=== PATIENT | male | born 1980 | race Caucasian/White ===

== ENCOUNTER 2020-03-28 14:51 | Emergency (ER) | payer SELFPAY ==
[2020-03-28] MEDS ORDERED: Diphtheria,Pertussis(Acell),Tetanus Vaccine 0.5 ML Syringe IM ONE (15:48)
--- NOTE | 2020-03-28 15:51 | EDM.PDOC ---
ED HPI GENERAL MEDICAL PROBLEM - General Chief Complaint: Laceration Stated Complaint: RIGHT FINGER INJURY Time Seen by Provider: 03/28/20 14:54 Source of Information: Reports: Patient History Limitations: Reports: No Limitations - History of Present Illness INITIAL COMMENTS - FREE TEXT/NARRATIVE: HISTORY AND PHYSICAL: History of present illness: Patient is a 39-year-old male who presents to the ED today with concern of right hand fourth digit injury that occurred just prior to travel to the ED. Patient states he threw a pipe down at work and his finger got smashed between 2 pipes. Patient states he came immediately to the emergency room. Patient states that he is not up-to-date on his tetanus and would like to update this today. States his been fully able to move the digits without any deficit. Patient denies fever, chills, chest pain, shortness of breath, or cough. Denies headache, neck stiff ness, change in vision, syncope, or near syncope. Denies nausea, vomiting, abdominal pain, diarrhea, constipation, or dysuria. Has not noted any blood in urine or stool. Patient has been eating and drinking appropriately. Review of systems: As per history of present illness and below otherwise all systems reviewed and negative. Past medical history: As per history of present illness and as reviewed below otherwise noncontributory. Surgical history: As per history of present illness and as reviewed below otherwise noncontributory. Social history: See social history for further information Family history: As per history of present illness and as reviewed below otherwise noncontributory. Physical exam: General: Patient is alert, oriented, and in no acute distress. Patient sitting comfortably on exam table. Vitals stable and reviewed by me. HEENT: Atraumatic, normocephalic, pupils equal and reactive bilaterally, negative for conjunctival pallor or scleral icterus, mucous membranes moist, TMs normal bilaterally, throat clear, neck supple, nontender, trachea midline. No drooling or trismus noted. No meningeal signs. No hot potato voice noted. Lungs: Clear to auscultation, breath sounds equal bilaterally, chest nontender. Heart: S1S2, regular rate and rhythm without overt murmur Abdomen: Soft, nondistended, nontender. Negative for masses or hepatosplenomegaly. Negative for costovertebral tenderness. Pelvis: Stable nontender. Genitourinary: Deferred. Rectal: Deferred. Skin: Intact, warm, dry. No lesions or rashes noted. Extremities: The distal 4th digit has a 4cm irregular laceration that starts on the pad of the palmar aspect and extends along the most distal fingertip and into the lateral nail slightly disturbing the small portion of the distal nail bed. Proper hemostasis of the finger. Patient has full ROM of all digits of the RUE without difficulty. Patient has full range of motion of the right wrist without pain or difficulty. Radial pulses grossly intact of the right upper extremity with capillary refill less than 2 seconds. Atraumatic, negative for cords or calf pain. Neurovascular unremarkable. Neuro: Awake, alert, oriented. Cranial nerves II through XII unremarkable. Cerebellum unremarkable. Motor and sensory unremarkable throughout. Exam nonfocal. Notes: Dr. Lincoln directly involved in patient care. Although strays shows fractures of the distal fourth and fifth digit phalanges, patient is not having any pain at the area of possible fracture on the fifth digit. There is no laceration or open area of the fifth digit of the right upper extremity. Patient is placed in a splint which is sirena taped with the fifth digit by nursing staff. I did call and speak to the hand specialist on-call at [facility], Dr. Aggarwal, who states that he is currently on-call for Dr. Tripathi. He instructs that placement be sent home on antibiotic and to have patient follow-up with Dr. Tripathi in the clinic. Signs and symptoms that were prompt return to the ED thoroughly discussed with patient. Discussed importance for follow-up with a hand specialist, Dr. Tripathi. Voices understanding and is agreeable to plan of care. Denies any further questions or concerns at this time. Diagnostics: hand XR Therapeutics: Tdap, Digital block, Sutures, splint placed by nursing staff Prescription: Keflex Impression: Open tuft fracture, right, open, 4th digit Tuft fracture, right, closed, 5th digit Plan: 1. Keep the splint on until follow-up with a hand specialist. Call tomorrow morning to establish an appointment time with the hand specialist. The number has been provided above for you to call and establish an appointment time. 2. Follow-up with the hand specialist as discussed. Return to the ED as needed and as discussed. 3. You can alternate ibuprofen and Tylenol as directed for pain and discomfort. Definitive disposition and diagnosis as appropriate pending reevaluation and review of above. right ring finger Pain Score (Numeric/FACES): 10 - Related Data Allergies Allergy/AdvReac Type Severity Reaction Status Date / Time No Known Allergies Allergy Verified 03/28/20 15:11 Home Meds: Home Meds cephALEXin [Keflex] 500 mg PO BID 10 Days #20 cap 03/28/20 [Rx] Past Medical History - Past Health History Medical/Surgical History: Denies Medical/Surgical History Social & Family History - Tobacco Use Tobacco Use Status *Q: Never Tobacco User - Recreational Drug Use Recreational Drug Use: No ED ROS GENERAL - Review of Systems Review Of Systems: Comprehensive ROS is negative, except as noted in HPI. ED EXAM, SKIN/RASH Exam: See Below (see dictation) ED SKIN PROCEDURES - Laceration/Wound Repair Right Distal Digit - 4th (Ring) Appearance: Muscle, Irregular, Mildly Contaminated Distal NVT: Neuro & Vascular Intact, No Tendon Injury Anesthetic Type: Digital Local Anesthesia - Lidocaine (Xylocaine): 1% Plain Local Anesthesia - Bupivicaine (Marcaine): 0.5% Plain Local Anesthetic Volume: Other (7) Skin Prep: Chlorhexidine (Hibiciens), Providone-Iodine (Betadine), Saline Saline Irrigation (cc's): 500 Exploration/Debridement/Repair: Wound Explored, In a Bloodless Field, Explored to Base, No Foreign Material Found Closed with: Sutures Lac/Wound length In cm: 4 Suture Size: 4-0 # of Sutures: 6 Suture Type: Silk, Interrupted Drain Placement: No Sterile Dressing Applied: Nurse Tetanus Status Addressed: Yes Complications: No Course - Vital Signs Last Recorded V/S: Last Vital Signs Temp 97.4 F 03/28/20 17:27 Pulse 60 03/28/20 17:27 Resp 18 03/28/20 17:27 BP 126/76 03/28/20 17:27 Pulse Ox 97 03/28/20 17:27 - Orders/Labs/Meds Orders: Active Orders 24 hr Category Date Time Status DME for Discharge [COMM] Stat Oth 03/28/20 17:15 Ordered Meds: Medications Discontinued Medications Generic Name Dose Route Start Last Admin Trade Name Freq PRN Reason Stop Dose Admin Bupivacaine HCl 10 ml 03/28/20 15:54 03/28/20 15:59 Sensorcaine-Mpf 0.5% INJECT 03/28/20 15:55 10 ml ONETIME ONE Administration Diphtheria/Tetanus/Acell Pertussis 0.5 ml 03/28/20 15:48 03/28/20 15:59 Boostrix IM 03/28/20 15:49 0.5 ml .ONCE ONE Administration Lidocaine HCl 5 ml 03/28/20 15:54 03/28/20 15:59 Xylocaine-Mpf 1% INJECT 03/28/20 15:55 5 ml ONETIME ONE Administration Departure - Departure Time of Disposition: 17:08 Disposition: Home, Self-Care 01 Clinical Impression: Open fracture of tuft of distal phalanx of finger, Closed fracture of tuft of distal phalanx of finger - Discharge Information Prescriptions: cephALEXin [Keflex] 500 mg PO BID 10 Days #20 cap Instructions: Finger Fracture, Adult, [id number], Cast or Splint Care, Adult, [id number], Sutured Wound Care, [id number] Referrals: PCP,None [Primary Care Provider] - Forms: ED Department Discharge Additional Instructions: The following information is given to patients seen in the emergency department who are being discharged to home. This information is to outline your options for follow-up care. We provide all patients seen in our emergency department with a follow-up referral. The need for follow-up, as well as the timing and circumstances, are variable depending upon the specifics of your emergency department visit. If you don't have a primary care physician on staff, we will provide you with a referral. We always advise you to contact your personal physician following an emergency department visit to inform them of the circumstance of the visit and for follow-up with them and/or the need for any referrals to a consulting specialist. The emergency department will also refer you to a specialist when appropriate. This referral assures that you have the opportunity for follow-up care with a specialist. All of these measure are taken in an effort to provide you with optimal care, which includes your follow-up. Under all circumstances we always encourage you to contact your private physician who remains a resource for coordinating your care. When calling for follow-up care, please make the office aware that this follow-up is from your recent emergency room visit. If for any reason you are refused follow-up, please contact the [facility] Emergency Department at and asked to speak to the emergency department charge nurse. [facility] [address] [place] [address] [facility] [address] [place] [address] [facility], Hand and Wrist Surgery, Dr. Tripathi [address] [place] [address] [place] [address] PH: [phone] 1. Keep the splint on until follow-up with a hand specialist. Call tomorrow morning to establish an appointment time with the hand specialist. The number has been provided above for you to call and establish an appointment time. 2. Follow-up with the hand specialist as discussed. Return to the ED as needed and as discussed. 3. You can alternate ibuprofen and Tylenol as directed for pain and discomfort. Sepsis Event Note (ED) - Evaluation Sepsis Screening Result: No Definite Risk - Focused Exam Vital Signs: Vital Signs Temp Pulse Resp BP Pulse Ox 03/28/20 17:27 97.4 F 60 18 126/76 97 03/28/20 15:09 94.8 F L 53 L 16 124/84 96 - My Orders Last 24 Hours: My Active Orders 03/28/20 17:15 DME for Discharge [COMM] Stat - Assessment/Plan Last 24 Hours: My Active Orders 03/28/20 17:15 DME for Discharge [COMM] Stat
[2020-03-28] MEDS ORDERED: Bupivacaine 0.5% 10 ML SDV INJECT ONE (15:54)
--- NOTE | 2020-03-28 16:00 | CR ---
Indication: Trauma Technique: Three images of the right hand were acquired Comparison: None Findings: There is a fracture involving the distal tuft the right 4th and the right 5th fingers. The 4th digit injury involves mild longitudinal displacement. The 5th digit injury is not significantly displaced. Soft tissue injury is noted associated with especially the 4th finger and to a lesser degree the 5th finger. No definite radiopaque foreign body Impression: Fractures of the distal phalanges of the right 4th and 5th digits. Dictated by Kishan Stover MD @ Mar 28 2020 3:57PM Signed by Dr. Kishan Stover @ Mar 28 2020 3:59PM
== END 2020-03-28 17:27 | disposition home or self-care (01) ==
LOC: MW.ED 14:51
DX: S62.634B Displaced fracture of distal phalanx of right ring finger, initial encounter for open fracture (principal); S62.636A Displaced fracture of distal phalanx of right little finger, initial encounter for closed fracture; Z23 Encounter for immunization; W23.0XXA Caught, crushed, jammed, or pinched between moving objects, initial encounter
CPT/HCPCS: 12002; 73130; 90471; 99283; J2001; J3490